=== PATIENT | female | born 2000 | race Caucasian/White ===

== ENCOUNTER 2024-09-17 22:42 | Emergency (ER) | payer OTHER, SELFPAY ==
--- NOTE | ~2024-09-17 | CT_ITS ---
EXAMINATION: CT abdomen pelvis w con DATE: 09/18/2024 00:49 INDICATION: Lower abdominal pain, nausea, vomiting and diarrhea TECHNIQUE: Computed tomography (CT) of the abdomen and pelvis was performed with 100 mL Omnipaque-350 intravenous contrast. Automated exposure control and iterative reconstruction technique were employe d. The dose-length product was 252.12 mGy-cm. COMPARISON: None FINDINGS: Lung bases are clear. Heart size is normal. No pericardial or pleural effusion. There are 4 subcentim eter low-attenuation hepatic lesions which. Pancreas, bilateral adrenal glands and kidneys are normal . Bowels including the appendix are normal. Bladder, anteverted uterus and right adnexa are normal. 2 cm peripherally enhancing corpus luteum cyst at the left ovary. Minimal amount of likely degenerativ e free fluid in the deep right pelvis. No abscess or free intraperitoneal gas. No pathologically enla rged abdominal or pelvic lymphadenopathy. Mild likely physiologic anterior wedging at T11 and T12. Mi ld lumbar and lower thoracic spondylosis. IMPRESSION: 1. 2 cm likely corpus luteum cyst at the left ovary. No other acute intra-abdominal/pelvic process. 2. There are 4 nonspecific subcentimeter hypodense hepatic lesions in the absence of a known malignan cy most likely represent hemangiomas. Could consider further evaluation with pre and postcontrast MRI although these may be too small to definitively characterize. Reviewed, dictated and finalized at location A. ARCHITECT IMPRESSION: 1. 2 cm likely corpus luteum cyst at the left ovary. No other acute intra-abdom inal/pelvic process. 2. There are 4 nonspecific subcentimeter hypodense hepatic lesions in the absen ce of a known malignancy most likely represent hemangiomas. Could consider furt her evaluation with pre and postcontrast MRI although these may be too small to definitively characterize.
[2024-09-17 22:44] VITALS: BP 104/53; PULSE 122; RESP 20; TEMP 36.3; O2SAT 100
[2024-09-17 23:03] VITALS: BP 102/60; PULSE 121; RESP 19; TEMP 36.6; O2SAT 99
[2024-09-17 23:07] LABS: Hematocrit 40.2 % (37.0-47.0); Hemoglobin 13.3 g/dL (12.0-15.0); Mean Corpuscular HGB Conc 33.1 g/dl (32-36); Mean Corpuscular Hemoglobin 28.6 pg (26-34); Mean Corpuscular Volume 86.5 fl (80-100); Platelet Count Result 225 k/mm3 (150-375); Red Blood Count 4.65 M/mm3 (4.2-5.4); White Blood Count 16.1 K/mm3 (4.5-10.0)
[2024-09-17 23:25] LABS: Alanine Aminotransferase 14 U/L (6-35); Albumin Level 4.8 g/dL (3.5-5.1); Alkaline Phosphatase 79 U/L (38-126); Anion Gap 10 mmol/L (4-12); Aspartate Amino Transferase 24 U/L (14-36); Bilirubin,Total 0.8 mg/dL (0.2-1.3); Blood Urea Nitrogen 12 mg/dL (7-17); Calcium 9.1 mg/dL (8.4-10.2); Carbon Dioxide 23 mmol/L (22-30); Chloride 104 mmol/L (98-107); Estimated CRCL calculation 93 ml/min; Estimated Glomerular Filt Rate > 60; Glucose 119 mg/dL (65-110); Lipase 67 U/L (23-300); Potassium 4.1 mmol/L (3.4-5.0); Sodium 137 mmol/L (137-145)
[2024-09-17 23:33] VITALS: BP 123/68; PULSE 105; RESP 16; TEMP 36.7; O2SAT 99
[2024-09-17 23:36] LABS: Band Neutrophils Percent 4 % (0-6); Eosinophils Absolute Manual 0.16 K/mm3 (0.02-0.50); Eosinophils Percent Manual 1 % (0-4); Lymphocytes Absolute Manual 0.48 K/mm3 (1.1-4.5); Monocytes Absolute Manual 0.64 K/mm3 (0.1-0.90); Monocytes Percent Manual 4 % (3-9); Neutrophils Absolute Manual 14.81 K/mm3 (1.7-7.2); Neutrophils Percent Manual 88 % (46-73); Total Cells Counted 100
[2024-09-17 23:37] LABS: Platelet Clumps Present; Platelet Estimate Adequate (Adequate); Schistocytes None Seen; Smudge Cells PRESENT
[2024-09-17 23:49] LABS: BEDSIDEPREGUCG Negative (Negative)
[2024-09-17] MEDS: ONDANSETRON INJ 4 MG/2 ML VIAL IV PUSH (23:54)
[2024-09-17] MEDS: SODIUM CHLORIDE 0.9% IV 1,000 ML 999 ML IV CONT (23:54)
[2024-09-17] MEDS: FAMOTIDINE 20 MG/2 ML VIAL IV PUSH (23:55)
[2024-09-17] MEDS: MORPHINE SULFATE (*CRX) 2 MG/ML INJ IV PUSH (23:56)
[2024-09-18 00:21] LABS: Add Urine Microscopic? YES; Appearance Urine Cloudy (Clear); Bacteria Urine 1+ /hpf; Bilirubin Urine Negative (Negative); Blood Urine Negative (Negative); Color Urine Dark Yellow (Yellow); Glucose Urine UA Negative (Negative); Ketones Urine 1+ mg/dL (Negative); Leukocyte Esterase Ur 2+ LEU/UL (Negative); Mucus Urine Present /lpf; Need Manual Microscopic Reviewed; Nitrate Urine Negative (Negative); Protein Urine 1+ mg/dL (Negative); Specific Grav Ur 1.028 (1.001-1.035); Squamous Epithelial Cell Urine Moderate /hpf (Few); WBC Urine 21-50 /hpf (0-3); pH Urine 5.5 (5.0-9.0)
--- NOTE | 2024-09-18 00:22 | ED.ABDPAIN ---
HPI - Abdominal Pain General Chief Complaint: Abdominal Pain Stated Complaint: vomiting Time Seen by Provider: 09/17/24 22:57 Source: patient Mode of arrival: ambulatory Limitations: no limitations History of Present Illness HPI narrative: Patient is a 24-year-old female who presents the ED with report of lower abdominal pain. Patient reports she developed sudden onset of lower pain around 7:00 p.m. tonight. States pain was very sharp pain has been constant since then. She then began having nausea, vomiting, diarrhea. Does has been unable to keep down food or drink. Denies rectal bleeding, melena, fevers, urinary complaints. Does have a previous history of gastroenteritis which felt similar. Related Data Allergies Allergy/AdvReac Type Severity Reaction Status Date / Time No Known Allergies Allergy Verified 09/17/24 22:51 Review of Systems Review of Systems: All systems reviewed & are unremarkable except as noted in HPI. All systems reviewed & are unremarkable except as noted in HPI and below Exam Narrative: GENERAL: Well appearing, well-nourished, non-toxic, in no acute distress. HEAD: Normocephalic, atraumatic. RESPIRATORY: Airway patent, respirations nonlabored. Clear to auscultation bilaterally, no rales, rhonchi, wheezing. CARDIOVASCULAR: Borderline tachycardic with regular rhythm without murmurs, rubs, or gallops. ABDOMINAL: Soft, diffuse tenderness throughout lower abdomen. No significant focal tenderness. No appreciable rebound. Nondistended. Normoactive BS. MUSCULOSKELETAL: Moves all extremities. No gross deformities. SKIN: Warm, dry, normal color. NEURO: A&O X3. Speech clear. Cranial nerves II-XII grossly intact. Steady gait. No ataxic movements. PSYCHIATRIC: Appropriate mood and affect. Normal interaction. Course Vital Signs Vital signs: Vital Signs Temperature 97.4 F L 09/17/24 22:44 Pulse Rate 122 H 09/17/24 22:44 Respiratory Rate 20 09/17/24 22:44 Blood Pressure 104/53 L 09/17/24 22:44 Pulse Oximetry 100 09/17/24 22:44 Oxygen Delivery Room Air 09/17/24 22:44 Temperature 97.7 F 09/18/24 01:37 Pulse Rate 89 09/18/24 01:37 Respiratory Rate 16 09/18/24 01:37 Blood Pressure 117/73 09/18/24 01:37 Pulse Oximetry 100 09/18/24 01:37 Oxygen Delivery Room Air 09/17/24 22:44 MDM - Abdominal Pain MDM Narrative Medical decision making narrative: Patient presented to ED with onset of lower abdominal pain earlier this evening associated with nausea, vomiting, diarrhea. Patient tachycardic upon arrival. Afebrile. Fluids initiated. CBC with white blood cell count of 16.1. Neutrophil predominance at 88%. 4% bands. Patient did report several episodes of emesis prior to arrival, likely contributing to this. CMP is unremarkable. Stable electrolytes. Urine with possible infection with 2+ leuk esterase, 21-50 white blood cell count, 1+ urine bacteria. Will send for culture and treat. Urine negative. CT scan of abdomen/pelvis was obtained and showing findings consistent with enteritis. Consistent with clinical picture. Given leukocytosis with urinary tract infection, will treat for enteritis/uti with antibiotics. Cipro/Flagyl will be started. Patient given 2 L of fluid in the ED in addition to nausea medicine. She is feeling much better with supportive therapy. Able to tolerate p.o. intake. Vital signs have normalized. Feel she is safe for discharge home at this time with close outpatient follow-up. Recommended follow-up with PCP for further evaluation. Will give GI follow-up as well. Given strict return precautions. She agrees with plan and feels comfortable going home. Discharged in stable condition. Medical Records Attestation: I reviewed the patient's medical records. Lab Data Attestation: I reviewed the patient's lab results. 09/17/24 23:02 09/17/24 23:02 Labs: Lab Results 09/17/24 09/17/24 09/17/24 Range/Units 23:02 23:45 23:47 WBC 16.1 H (4.5-10.0) K/mm3 RBC 4.65 (4.2-5.4) M/mm3 Hgb 13.3 (12.0-15.0) g/dL Hct 40.2 (37.0-47.0) % MCV 86.5 (80-100) fl MCH 28.6 (26-34) pg MCHC 33.1 (32-36) g/dl RDW 13.0 (11.5-14.5) % Plt Count 225 (150-375) k/mm3 MPV 10.0 (7.4-10.4) fl Immature Gran % (Auto) Not Reportable Neut % (Auto) Not Reportable Lymph % (Auto) Not Reportable [place] % (Auto) Not Reportable Eos % (Auto) Not Reportable Baso % (Auto) Not Reportable Lymph # (Auto) Not Reportable [place] # (Auto) Not Reportable Eos # (Auto) Not Reportable Baso # (Auto) Not Reportable Abs Immat Gran (auto) Not Reportable Absolute Neuts (auto) Not Reportable Absolute Nucleated RBC Not Reportable Total Counted 100 Neutrophils % (Manual) 88 H (46-73) % Band Neutrophils % 4 (0-6) % Lymphocytes % (Manual) 3.0 L (18-44) % Monocytes % (Manual) 4 (3-9) % Eosinophils % (Manual) 1 (0-4) % Nucleated RBC % Not Reportable Abs Neuts (Manual) 14.81 H (1.7-7.2) K/mm3 Abs Lymphs (Manual) 0.48 L (1.1-4.5) K/mm3 Abs Monocytes (Manual) 0.64 (0.1-0.90) K/mm3 Absolute Eos (Manual) 0.16 (0.02-0.50) K/mm3 Smudge Cells Present Platelet Estimate Adequate (Adequate) Clumped Platelets Present Schistocytes None seen Sodium 137 (137-145) mmol/L Potassium 4.1 (3.4-5.0) mmol/L Chloride 104 (98-107) mmol/L Carbon Dioxide 23 (22-30) mmol/L Anion Gap 10 (4-12) mmol/L BUN 12 (7-17) mg/dL Creatinine 0.80 (0.7-1.0) mg/dL Estim Creat Clear Calc 93 ml/min Estimated GFR > 60 (59 - ) Glucose 119 H (65-110) mg/dL Calcium 9.1 (8.4-10.2) mg/dL Total Bilirubin 0.8 (0.2-1.3) mg/dL AST 24 (14-36) U/L ALT 14 (6-35) U/L Alkaline Phosphatase 79 (38-126) U/L Total Protein 8.0 (6.3-8.2) g/dL Albumin 4.8 (3.5-5.1) g/dL Lipase 67 (23-300) U/L Urine Color Dark yellow (Yellow) Urine Appearance Cloudy H (Clear) Urine pH 5.5 (5.0-9.0) Ur Specific [place] 1.028 (1.001-1.035) Urine Protein 1+ H (Negative) mg/dL Urine Glucose (UA) Negative (Negative) mg/dL Urine Ketones 1+ H (Negative) mg/dL Ur Blood (Man) Negative (Negative) Urine Nitrate Negative (Negative) Urine Bilirubin Negative (Negative) Urine Urobilinogen 1.0 (<2.0) mg/dL Add Ur Microanalysis Reviewed Leukocyte Esterase Rfl 2+ H (Negative) AVELINO/UL Urine RBC 6-10 H (0-2) /hpf Urine WBC 21-50 H (0-3) /hpf Ur Squamous Epith Cells Moderate (Few) /hpf Urine Bacteria 1+ H /hpf Urine Casts 6-10 Urine Mucus Present /lpf POC Urine HCG, Qual Negative (Negative) Imaging Data Attestation: I personally reviewed and interpreted this imaging study as follows: Radiologist's impression: ITS Impressions Abdomen/Pelvis CT 09/18/24 08:02 IMPRESSION: 1. 2 cm likely corpus luteum cyst at the left ovary. No other acute intra-abdominal/pelvic process. 2. There are 4 nonspecific subcentimeter hypodense hepatic lesions in the absence of a known malignancy most likely represent hemangiomas. Could consider further evaluation with pre and postcontrast MRI although these may be too small to definitively characterize. STAT RAD CT abd/pelvis: Impression: Fluid within small bowel and proximal colon, potentially indicating enteritis. No obstruction. Normal appendix. Incidental findings: Multiple subcentimeter hypodensities in the liver, too small to characterize, possibly hemangioma periods gallbladder, spleen, pancreas, adrenal glands, and kidneys are unremarkable. No bowel obstruction. Uterus and urinary bladder unremarkable. Left ovarian corpus luteum. Small amount of free pelvic fluid. No free air. Normal appendix. No bowel obstructions. No acute osseous findings. Discharge Plan Discharge Clinical Impression: Enteritis, UTI (urinary tract infection), Nausea and vomiting Patient Disposition: Home, Self-Care Condition: Stable Instructions: Antibiotic Form, Dehydration (ED), Urinary Tract Infection in Women (ED), Gastroenteritis (ED), Acute Nausea and Vomiting (ED) Additional Instructions: Take antibiotics as prescribed for enteritis and UTI. It is important you finish both courses. Avoid alcohol use while taking Flagyl. Continue Tylenol and/or Bentyl as needed for abdominal discomfort. Utilize zofran as needed for further nausea. Increase fluid intake. Recommend electrolyte rich fluids, gatorade, pedialyte, body armour. Recommend clear liquids or bland diet until symptoms improve, such as bananas, rice, applesauce, toast, or crackers. Follow up with your primary care doctor and/or GI for further evaluation. Return to the ED if you experience worsening or severe symptoms, unable to keep down food or drink, severe pain, fevers, rectal bleeding, vomiting blood, or any other symptoms of concern. Prescriptions: New ciprofloxacin HCl 500 mg tablet 500 mg PO Q12H 7 Days Qty: 14 0RF dicyclomine 20 mg tablet 20 mg PO TID PRN (Reason: Abdominal Discomfort) Qty: 15 0RF ondansetron 4 mg tablet,disintegrating 4 mg PO Q8H PRN (Reason: nausea and vomiting) Qty: 15 0RF metronidazole 500 mg tablet 500 mg PO Q12H 7 Days Qty: 14 0RF Follow-up/Referrals: PHYSICIAN,REQUIREMENTS ENGINEER [Primary Care Provider] - Kade Jackson MD [Physician] - (PRIMARY CARE) Inder Roche MD [Physician] - (GI) Time of Disposition: 01:44
[2024-09-18 01:05] VITALS: BP 104/60; PULSE 90; RESP 16; TEMP 36.4; O2SAT 100
[2024-09-18] MEDS: SODIUM CHLORIDE 0.9% IV 1,000 ML 999 ML IV CONT (01:15)
[2024-09-18] MEDS: METOCLOPRAMIDE HCL INJ 10 MG/2 ML VIAL IV PUSH (01:16)
[2024-09-18] MEDS: diphenhydrAMINE HCl INJ 50 MG/ML VIAL 25 MG IV PUSH (01:16)
[2024-09-18 01:37] VITALS: BP 117/73; PULSE 89; RESP 16; TEMP 36.5; O2SAT 100
== END 2024-09-18 01:54 | disposition home or self-care (01) ==
PROVIDERS: Student in an Organized Health Care Education/Training Program; Emergency Provider Physician Assistant
DX: K52.9 Noninfective gastroenteritis and colitis, unspecified (principal); N39.0 Urinary tract infection, site not specified; K76.9 Liver disease, unspecified; N83.12 Corpus luteum cyst of left ovary
CPT/HCPCS: 36415; 74177; 80053; 81001; 81025; 83690; 85025; 87086; 96361; 96374; 96375; 99284; J1200; J2270; J2405; J2765; J7030; Q9967